=== PATIENT | male | born 1995 | race Two or more races ===

== ENCOUNTER 2020-07-12 20:43 | Emergency (ER) | payer SELFPAY ==
[~2020-07-12] VITALS: Ht 182.9 cm; Wt 83.5 kg
[2020-07-12 20:43] VITALS: BP 137/80
[2020-07-12] MEDS ORDERED: ACET-73 PO (21:27)
[2020-07-12] MEDS ORDERED: ACETAMINOPHEN 325 MG TABLET ONE (21:30)
[2020-07-12] MEDS: ACETAMINOPHEN 325 MG TABLET PO ONE (21:31)
--- NOTE | 2020-07-12 22:16 | NUR ---
Patient discharged to home in stable condition. Written and verbal after care instructions given. Patient verbalizes understanding of instruction. Pt ambulatory with a steady gait
== END 2020-07-12 22:41 | disposition home or self-care (01) ==
LOC: ER 20:43
DX: S29.012A Strain of muscle and tendon of back wall of thorax, initial encounter (principal); T23.101A Burn of first degree of right hand, unspecified site, initial encounter; V43.52XA Car driver injured in collision with other type car in traffic accident, initial encounter; W22.11XA Striking against or struck by driver side automobile airbag, initial encounter; Y93.89 Activity, other specified; Y92.413 State road as the place of occurrence of the external cause; Y99.8 Other external cause status